=== PATIENT | male | born 1985 | race Caucasian/White ===

== ENCOUNTER 2021-01-14 23:17 | Emergency (ER) | payer OTHER, SELFPAY ==
--- NOTE | ~2021-01-14 | XR_ITS ---
EXAMINATION: XR chest 1V portable DATE: 01/15/2021 01:14 INDICATION: Cough TECHNIQUE: frontal view of the chest was obtained. COMPARISON: None FINDINGS: The lungs are clear with no focal airspace opacities, pulmonary edema, pleural effusion or pneumothor ax. The cardiomediastinal silhouette is normal. Visualized bones and soft tissues are unremarkable. IMPRESSION: 1. No acute cardiopulmonary disease. Reviewed, dictated and finalized at location A.
[2021-01-14 23:20] VITALS: BP 128/79; PULSE 95; RESP 18; TEMP 37.1; O2SAT 97
[2021-01-15 01:15] VITALS: BP 132/87; PULSE 90; RESP 20; O2SAT 99
[2021-01-15 02:21] LABS: EDCOVIDSCREEN Positive (Negative)
--- NOTE | 2021-01-15 03:38 | ED.GENADULT ---
HPI - General Adult General Chief complaint: Unspecified Stated complaint: JOSEPH, cough, fatigue, nausea Time Seen by Provider: 01/15/21 00:58 Source: RN notes reviewed History of Present Illness HPI narrative: Patient presents to emergency department from home for multiple complaints. Patient states he began to feel ill 2 days ago. States he has had intermittent headaches subjective fevers nonproductive cough and intermittent nausea as well as rhinorrhea and mild sore throat he states that he does not have the COVID-19 vaccine he denies having any measured fevers chest pain shortness of breath vomiting or any other symptoms states he has been taking aspirin at home with no relief Related Data Allergies Allergy/AdvReac Type Severity Reaction Status Date / Time penicillin G Allergy Mild Unknown Verified 01/14/21 23:24 Penicillins Allergy Unknown Unknown Verified 01/14/21 23:24 Review of Systems Review of Systems: Gen.: Subjective fevers Eyes: Denies eye pain or visual change ENT: See HPI Respiratory: Denies shortness of breath reports nonproductive cough CV: Denies chest pain or palpitations GI: Denies abdominal pain emesis or diarrhea reports nausea Musculoskeletal: Denies back pain or muscle pain Neuro: Denies numbness, tingling, weakness or focal weakness Skin: Denies rash Except as documented, all other systems reviewed and negative PMFSH Past Medical History Medical History Cellulitis Type 2 diabetes mellitus Family History Family History (System 01/18/20 @ 13:03 by Lauren Yeboah) Mother Type 2 diabetes mellitus Father Patient's father is in good health Other Diabetes mellitus Family history of arthritis Hypertension Social History Social History Smoking status: Never smoker Alcohol intake: never Exam Narrative: APPEARANCE: No acute distress, nontoxic, resting in bed EYES: EOMI HEENT: Normocephalic, atraumatic, bilateral turbinates boggy mild erythema no exudate posterior pharynx uvula midline no exudate RESPIRATORY: No respiratory distress Clear to auscultation bilaterally with no rhonchi wheezing or rales. CARDIOVASCULAR: Regular rate and rhythm without murmurs rubs or gallops. ABDOMINAL: Soft, nontender, nondistended, no rebound or guarding MUSCULOSKELETAl: Moves all extremities. No clubbing, cyanosis or edema. NEURO: Awake and alert. Following commands, speech normal, no focal deficits SKIN:: Warm, dry. No rashes lesions or abrasions PSYCHIATRIC: Normal affect/mood, Course Course Emergency Course: Discussed with patient results of workup and diagnosis. Discussed need for follow-up with primary care, proper use of medication, and reasons to return to the emergency department. Patient understands and agrees to current treatment plan discussed with patient self-isolation for 10 days from start of symptoms Vital Signs Vital signs: Vital Signs Temperature 98.8 F 01/14/21 23:20 Pulse Rate 95 01/14/21 23:20 Respiratory Rate 18 01/14/21 23:20 Blood Pressure 128/79 01/14/21 23:20 Pulse Oximetry 97 01/14/21 23:20 Temperature 98.8 F 01/14/21 23:20 Pulse Rate 90 01/15/21 01:15 Respiratory Rate 20 01/15/21 01:15 Blood Pressure 132/87 01/15/21 01:15 Pulse Oximetry 99 01/15/21 01:15 Medical Decision Making Vital Signs Vital Signs: Vital Signs Temperature 98.8 F 01/14/21 23:20 Pulse Rate 95 01/14/21 23:20 Respiratory Rate 18 01/14/21 23:20 Blood Pressure 128/79 01/14/21 23:20 Pulse Oximetry 97 01/14/21 23:20 Temperature 98.8 F 01/14/21 23:20 Pulse Rate 90 01/15/21 01:15 Respiratory Rate 20 01/15/21 01:15 Blood Pressure 132/87 01/15/21 01:15 Pulse Oximetry 99 01/15/21 01:15 Lab Data Labs: Lab Results 01/15/21 Range/Units 01:55 SARS-CoV-2 IgG/IgM Ag?Rapid Positive (Negative) Imaging Data
[2021-01-15 03:59] VITALS: BP 131/88; PULSE 89; RESP 20; O2SAT 97
== END 2021-01-15 04:02 | disposition home or self-care (01) ==
PROVIDERS: Emergency Provider Emergency Medicine
DX: U07.1 COVID-19 (principal); E11.9 Type 2 diabetes mellitus without complications; Z79.4 Long term (current) use of insulin
CPT/HCPCS: 36415; 71045; 87426; 99283; C9803

== ENCOUNTER 2021-10-22 19:51 | Inpatient (IN) | payer OTHER, SELFPAY ==
--- NOTE | ~2021-10-22 | XR_ITS ---
EXAMINATION: XR chest 2V Exam Date/Time: 10/22/2021 22:10 CDT HISTORY: dka, EMISIS, PALPITATIONS Comparison: 01/15/2021. RESULT: Lines, tubes, and devices: None. Lungs and pleura: Clear. Unchanged nodular opacity in the left lateral lower lung, likely granuloma or soft tissue artifact. Cardiomediastinal silhouette: Stable cardiomediastinal silhouette. Other: No acute osseous or upper abdominal finding. IMPRESSION: No acute cardiopulmonary process. Reviewed, dictated and finalized at location K.
[2021-10-22 19:53] VITALS: BP 138/78; PULSE 114; RESP 18; TEMP 36; O2SAT 100
[2021-10-22 20:05] LABS: Glucose Point of Care 339 mg/dl (65-105)
--- NOTE | 2021-10-22 20:05 | PC.NURSE ---
blood glucose was 339 at 2004
[2021-10-22 20:16] LABS: Basophils Percent Auto 0.3 % (0.2-1.2); Hematocrit 49.4 % (42.0-52.0); Hemoglobin 16.5 g/dL (14.0-18.0); Immature Granulocyte Percent A 1.9 % (0-0.5); Lymphocytes Absolute Auto 0.62 K/mm3 (0.9-3.2); Mean Corpuscular HGB Conc 33.4 g/dl (32-36); Mean Corpuscular Hemoglobin 29.4 pg (26-34); Mean Corpuscular Volume 87.9 fl (80-100); Monocytes Absolute Auto 0.7 K/mm3 (0.1-0.6); Monocytes Percent Auto 4.4 % (2.6-8.5); Neutrophils Absolute Auto 13.8 K/mm3 (1.3-6.7); Neutrophils Percent Auto 89.4 % (45.5-73.1); Platelet Count Result 291 k/mm3 (150-375); Red Blood Count 5.62 M/mm3 (4.6-6.20); Red Cell Distribution Width 13.1 % (11.5-14.5); White Blood Count 15.4 K/mm3 (4.5-10.0)
[2021-10-22 20:35] LABS: Alveolar/Arterial O2 Gradient 16.6 mmHg; Base Excess ABG -18.1 mEq/l (+/-2.0); Carboxyhemoglobin 1.2 % THb (0-2.0); Fractional Inspired Oxygen 21 %; Methemoglobin ABG 0.2 %THb (0-1.5); Oxygen Content ABG 22.2 %vol (16.0-22.0); Oxygen Saturation ABG 96.8 % (95.0-100.0); Oxyhemoglobin 96.3 % THb (90.0-100.0); PO2 ABG 107.1 mmHg (80.0-100.0); Reduced Hemoglobin 2.3 %THb (0-5.0); Total Hemoglobin 16.3 g/dL (12.0-18.0)
[2021-10-22 20:37] LABS: Ovalocytes 1+ (NORMAL); Platelet Estimate Adequate (Adequate)
[2021-10-22 20:39] LABS: Device ROOM AIR; Modified Allen's Test Pass; PCO2 ABG 21.7 mmHg (35.0-45.0); Site Drawn LEFT RADIAL; pH ABG 7.184 (7.350-7.450)
[2021-10-22] MEDS: SODIUM CHLORIDE 0.9% IV 1,000 ML 999 ML IV CONT ×3 (20:41→22:08)
[2021-10-22] MEDS: ONDANSETRON INJ 4 MG/2 ML VIAL IV PUSH ×2 (20:41→23:08)
[2021-10-22 20:42] LABS: Alanine Aminotransferase 39 U/L (6-50); Alkaline Phosphatase 66 U/L (38-126); Aspartate Amino Transferase 21 U/L (17-59); Bilirubin,Total 0.5 mg/dL (0.2-1.3); Blood Urea Nitrogen 35 mg/dL (9-20); Calcium 8.9 mg/dL (8.4-10.2); Carbon Dioxide < 5 mmol/L (22-30); Chloride 89 mmol/L (98-107); Estimated CRCL calculation 68 ml/min; Estimated Glomerular Filt Rate 53; Glucose 284 mg/dL (65-110); Lipase 114 U/L (23-300); Potassium 4.2 mmol/L (3.4-5.0); Sodium 125 mmol/L (137-145)
[2021-10-22 20:47] VITALS: BP 116/61; PULSE 109; RESP 20; O2SAT 100
[2021-10-22 20:52] LABS: Appearance Urine Clear (Clear); Bilirubin Urine 1+ (Negative); Blood Urine Trace-lysed (Negative); Color Urine Yellow (Yellow); Glucose Urine UA 2+ mg/dL (Negative); Ketones Urine 4+ mg/dL (Negative); Leukocyte Esterase Ur Negative LEU/UL (Negative); Nitrate Urine Negative (Negative); Protein Urine 1+ mg/dL (Negative); Specific Grav Ur 1.015 (1.001-1.035); Urobilinogen Urine 0.2 mg/dL (<2.0); pH Urine 5.5 (5.0-9.0)
[2021-10-22 20:57] LABS: Add Urine Microscopic? YES; Mucus Urine Rare /lpf; RBC Urine 0-2 /hpf (0-2); Squamous Epithelial Cell Urine Rare /hpf (Few); WBC Urine 0-3 /hpf
[2021-10-22 21:32] VITALS: BP 107/69; PULSE 114; RESP 17; O2SAT 100
[2021-10-22 21:35] LABS: Glucose Point of Care 230 mg/dl (65-105)
--- NOTE | 2021-10-22 21:57 | ED.GENADULT ---
HPI - General Adult General Chief complaint: Nausea/Vomiting/Diarrhea Stated complaint: vomiting diabetic Time Seen by Provider: 10/22/21 20:16 History of Present Illness HPI narrative: Patient is a 36-year-old male who presents ER with fatigue and vomiting. Reports he has been feeling terrible for the last couple of days. He was seen in urgent care yesterday because he has had a sore mouth on the left side lower jaw. He has fractured teeth and they felt he had a dental infection and started on oral antibiotics. He is supposed to follow-up with a dentist in 3 days. Reports he has been vomiting for the last 2 days. Because he is not eating he is not taking his insulin. Denies fevers or chills or sweats. No alleviating factors. Unknown last time he was in DKA. Related Data Allergies Allergy/AdvReac Type Severity Reaction Status Date / Time penicillin G Allergy Mild Unknown Verified 10/22/21 20:21 Penicillins Allergy Unknown Unknown Verified 10/22/21 20:21 Review of Systems Review of Systems: All systems reviewed & are unremarkable except as noted in HPI and below Constitutional: Constitutional: Denies chills, Reports fatigue, Denies fever(s) and Reports weakness ENT: Denies nasal congestion and Denies sore throat Comments: Dental pain Cardiovascular: Cardiovascular: Denies chest pain, Denies rapid heart rate and Denies radiating jaw, neck or arm pain Respiratory: Respiratory: Denies cough and Denies dyspnea Gastrointestinal: Gastrointestinal: Denies abdominal pain, Denies constipation, Reports nausea and Reports vomiting Neurologic: Denies headache(s), Denies focal weakness and Denies numbness PMFSH Past Medical History Medical History (Updated 10/23/21 @ 05:37 by Kwabena Buck MD) Cellulitis (05/2018) COVID-19 (01/30/21) Type 2 diabetes mellitus Surgical History Surgical History No history of previous surgery Family History Family History Mother Type 2 diabetes mellitus Father Hypertension Hyperthyroidism History of thyroidectomy Sibling Type 2 diabetes mellitus Brother Sibling , Age 9 Congenital heart disease Sibling Cerebral palsy Social History Social History (Updated 10/23/21 @ 05:10 by Masha Garland DO) Smoking status: Never smoker Alcohol intake: never Substance use: never Additional living arrangements comments: He shares an apartment with his brother. He has a girlfriend. Additional occupation/education comments: He works at [employer]. He has a 15-year-old daughter. Spiritual care concerns: No Exam Narrative: GENERAL: Ill and uncomfortable-appearing, well-nourished, and in mild distress. HEAD: Normocephalic, atraumatic. ENT: Dry mucous membranes. Poor dentition with multiple dental caries and fractures. No obvious dental abscess on evaluation. No facial swelling. NECK: Supple. CHEST: Clear to auscultation. No respiratory distress. HEART: Tachycardic and regular. Normal peripheral pulses. ABDOMEN: Soft, nontender, nondistended. EXTREMITIES: Normal range of motion. No edema. SKIN: Warm, dry, no rash. NEURO: Alert and oriented x3. PSYCH: Normal mood and affect. Course Course Emergency Course: Admit to hospitalist service. ICU consulted. Patient be started on insulin drip. Will start on clindamycin for dental infection as this may have been the nidus that caused patient to start having decompensation. Vital Signs Vital signs: Vital Signs Temperature 96.8 F L 10/22/21 19:53 Pulse Rate 114 H 10/22/21 19:53 Respiratory Rate 18 10/22/21 19:53 Blood Pressure 138/78 10/22/21 19:53 Pulse Oximetry 100 10/22/21 19:53 Temperature 96.8 F L 10/22/21 19:53 Pulse Rate 120 H 10/23/21 04:00 Respiratory Rate 16 10/23/21 04:00 Blood Pressure 141/80 H 10/23/21 04:00 Pulse Oximetry 100 10/23/21 04:00 Oxyg
[2021-10-22 22:16] LABS: Lactic Acid Reflex 2.3 mmol/L (0.7-2.0)
[2021-10-22 22:17] LABS: Magnesium 2.5 mg/dL (1.6-2.3); Phosphorus 4.8 mg/dL (2.5-4.5)
[2021-10-22 22:29] VITALS: BP 139/83; PULSE 105; RESP 22; O2SAT 100
[2021-10-22] MEDS: CLINDAMYCIN 600 MG/D5W 50 ML 600 MG/50 ML PIGGYBACK 100 MG IVPB (22:38)
[2021-10-22 22:53] LABS: Glucose Point of Care 204 mg/dl (65-105)
[2021-10-22] MEDS: INSULIN HUMAN REGULAR (*BKC) 100 UNITS in SODIUM CHLORIDE 0.9% IV 99 ML IV CONT (23:01)
--- NOTE | 2021-10-22 23:12 | PM.IMHP ---
H&P: HPI History of Present Illness Date/Time: 10/22/21 22:50 Chief Complaint: ?Feels like shit? Narrative: 36-year-old male with a past medical history of insulin-dependent diabetes mellitus type 2, hypertension, hyperlipidemia and dental caries who presented to the ER via private vehicle due to multiple bouts of emesis. He reports he had 1 day of tooth pain in his left lower jaw. He was followed by 4-5 days of left jaw pain. He did have some swelling in his left lower jaw initially but that had improved. His symptoms were accompanied by polydipsia and polyuria. He denies any dysuria. He has not had any cough or congestion. He had a decreased appetite and severe to generalized fatigue. He felt so bad that he had not been eating or drinking. In 3 days ago he began having vomiting. Since he was not eating he decided not to take his Levemir. He reports that he was still taking his oral medications but he does not know know the names of his home medications. He cannot tell us the dose of Levemir that he takes. His symptoms became so bad that he went to urgent care yesterday and received a prescription for ibuprofen and clindamycin. Despite taking the clindamycin his symptoms did not improve so his mother insisted that he come to the ER. He denies symptoms of peripheral neuropathy. He was diagnosed with diabetes at the age of 18 at which time he weighed close to 300 lb. He has had a gradual weight loss ever since his diabetes diagnosis. He does not think he was ever tested to determine if he had type 1 or type 2 diabetes. He has been on insulin since he was 1st diagnosed. He reports that he has never had DKA previously. Review of Systems Review of Systems: 12 systems were reviewed with pertinent positives and negatives per HPI. Except as documented in the HPI, all other systems were reviewed and are negative. [facility] Past Medical History Medical History (Updated 10/23/21 @ 05:37 by Kwabena Buck MD) Cellulitis (05/2018) COVID-19 (01/30/21) Type 2 diabetes mellitus Surgical History Surgical History No history of previous surgery Family History Family History Mother Type 2 diabetes mellitus Father Hypertension Hyperthyroidism History of thyroidectomy Sibling Type 2 diabetes mellitus Brother Sibling , Age 9 Congenital heart disease Sibling Cerebral palsy Social History Social History (Updated 10/23/21 @ 05:10 by Masha Garland DO) Smoking status: Never smoker Alcohol intake: never Substance use: never Additional living arrangements comments: He shares an apartment with his brother. He has a girlfriend. Additional occupation/education comments: He works at [employer]. He has a 15-year-old daughter. Spiritual care concerns: No Meds Home Medications and Allergies Home Medications Medication Instructions Recorded Confirmed Type insulin glargine U-300 conc 300 42 unit (0.14 mL) subcut DAILY #12 04/02/19 Rx unit/mL (3 mL) subcutaneous pen PF unit (Toujeo Max U-300 SoloStar) cyclobenzaprine 10 mg tablet 10 mg PO BID PRN muscle spasm #20 01/12/20 01/12/20 Rx tabs insulin glargine U-300 conc 300 42 unit (0.14 mL) subcut DAILY #6 01/13/20 Rx unit/mL (3 mL) subcutaneous pen mL (Toujeo Max U-300 SoloStar) empagliflozin 25 mg tablet 25 mg PO QAM #90 tabs 02/10/20 Rx (Jardiance) albuterol sulfate 90 mcg/actuation 2 puff inhalation QID PRN 01/15/21 Rx aerosol inhaler shortness of breath or wheezing #6.7 grams ibuprofen 600 mg tablet (IBU) 600 mg PO Q6H PRN pain #20 tabs 01/15/21 Rx ondansetron 4 mg disintegrating 4 mg PO Q6H PRN nausea and 01/15/21 Rx tablet vomiting #10 tabs Allergies Allergy/AdvReac Type Severity Reaction Status Date / Time penicillin G Allergy Mild Unknown Verified 10/22/21 20:21 Penicillins Allergy Unk
[2021-10-22] MEDS: DEXTROSE 5%/0.45% SOD CHL 1,000 ML 150 ML IV CONT (23:27)
--- NOTE | 2021-10-22 23:38 | PC.NURSE ---
this RN called to give report to ICU, RN not available. Will call back when able.
[2021-10-23] VITALS (15 sets, daily range): BP systolic 110–153; BP diastolic 51–92; PULSE 78–120; RESP 14–23; TEMP 36.6–37.3; O2SAT 98–100; BMI 29.3
[2021-10-23 00:04] LABS: Glucose Point of Care 180 mg/dl (65-105)
[2021-10-23 00:25] LABS: Glucose Point of Care 180 mg/dl (65-105)
[2021-10-23] MEDS: KCL 20 MEQ/D5/0.45% SOD CHL 1,000 ML 150 ML IV CONT ×2 (00:28→07:07)
[2021-10-23] MEDS: INSULIN HUMAN REGULAR (*BKC) 100 UNITS in SODIUM CHLORIDE 0.9% IV 99 ML IV CONT (00:30)
[2021-10-23] MEDS: ONDANSETRON INJ 4 MG/2 ML VIAL IV PUSH (00:53)
[2021-10-23 01:09] LABS: Reflex Lactic Acid Yes or No Add Lactic
[2021-10-23 01:17] LABS: Lactic Acid Reflex 1.2 mmol/L (0.7-2.0)
[2021-10-23 01:19] LABS: Glucose Point of Care 171 mg/dl (65-105)
[2021-10-23 01:20] LABS: Hemoglobin A1C 7.9 % (<5.7)
[2021-10-23 01:45] LABS: Anion Gap 22 mmol/L (8-16); Blood Urea Nitrogen 27 mg/dL (9-20); Carbon Dioxide 8 mmol/L (22-30); Chloride 101 mmol/L (98-107); Creatine Kinase 64 U/L (55-170); Estimated CRCL calculation 110 ml/min; Estimated Glomerular Filt Rate > 60; Glucose 171 mg/dL (65-110); Magnesium 2.3 mg/dL (1.6-2.3); Phosphorus 2.6 mg/dL (2.5-4.5); Sodium 131 mmol/L (137-145)
[2021-10-23 02:09] LABS: Glucose Point of Care 172 mg/dl (65-105)
[2021-10-23 03:14] LABS: Glucose Point of Care 144 mg/dl (65-105)
[2021-10-23 04:13] LABS: Glucose Point of Care 140 mg/dl (65-105)
[2021-10-23] MEDS: PROMETHAZINE HCL 25 MG/ML AMPUL IM (04:26)
[2021-10-23 04:41] LABS: Anion Gap 17 mmol/L (8-16); Blood Urea Nitrogen 25 mg/dL (9-20); Calcium 8.1 mg/dL (8.4-10.2); Carbon Dioxide 10 mmol/L (22-30); Chloride 103 mmol/L (98-107); Estimated CRCL calculation 123 ml/min; Estimated Glomerular Filt Rate > 60; Glucose 153 mg/dL (65-110); Potassium 3.9 mmol/L (3.4-5.0); Sodium 130 mmol/L (137-145)
[2021-10-23 05:12] LABS: Glucose Point of Care 137 mg/dl (65-105)
[2021-10-23] MEDS: CLINDAMYCIN 600 MG/D5W 50 ML 600 MG/50 ML PIGGYBACK 100 MG IVPB ×3 (06:11→21:20)
[2021-10-23] MEDS: SODIUM CHLORIDE 0.9% IV 1,000 ML 999 ML IV CONT (06:12)
[2021-10-23 06:18] LABS: Glucose Point of Care 144 mg/dl (65-105)
[2021-10-23 06:34] LABS: Hemoglobin 15.2 g/dL (14.0-18.0); Mean Corpuscular HGB Conc 34.5 g/dl (32-36); Mean Corpuscular Hemoglobin 29.7 pg (26-34); Mean Corpuscular Volume 85.9 fl (80-100); Mean Platelet Volume 9.4 fl (7.4-10.4); Platelet Count Result 227 k/mm3 (150-375); Red Blood Count 5.12 M/mm3 (4.6-6.20); Red Cell Distribution Width 12.9 % (11.5-14.5); White Blood Count 12.5 K/mm3 (4.5-10.0)
[2021-10-23 07:01] LABS: Glucose Point of Care 129 mg/dl (65-105)
[2021-10-23 07:42] LABS: Glucose Point of Care 138 mg/dl (65-105)
[2021-10-23] MEDS: ENOXAPARIN 40 MG/0.4 ML SYRINGE SUB-Q (08:04)
[2021-10-23 08:09] LABS: Glucose Point of Care 149 mg/dl (65-105)
--- NOTE | 2021-10-23 08:44 | WPDCNINT ---
Assessment and Plan Assessment and plan (1) DKA (diabetic ketoacidosis): Code(s): E11.10 - Type 2 diabetes mellitus with ketoacidosis without coma Status: Acute Assessment and Plan: Patient presented the ED on 11/08/2021 with polydipsia, polyuria, decreased oral intake, not taking his Levemir as he was not eating. -patient was found to be in a diabetic ketoacidosis in the ER with elevated blood sugars, anion gap and beta hydroxybutyrate. -total of 4 L of IV fluids were given to the patient, started on insulin infusion along with maintenance IV fluids -will transition patient to long-acting insulin sliding scale insulin once his anion gap is closed -will have perioperative educator and dietitian to evaluate the patient (2) Acute kidney injury: Code(s): N17.9 - Acute kidney failure, unspecified Status: Acute Assessment and Plan: Resolved with IV fluids, likely related to hypovolemia secondary to polyuria, decreased p.o. intake in diabetic ketoacidosis (3) Dental abscess: Code(s): K04.7 - Periapical abscess without sinus Status: Acute Assessment and Plan: Dental caries and abscess -patient has been started on IV clindamycin as he has allergy to penicillin (4) DVT prophylaxis: Code(s): Z29.9 - Encounter for prophylactic measures, unspecified Status: Acute Assessment and Plan: Enoxaparin Plan -Continue insulin infusion -continue antibiotics -continue maintenance IV fluids at this time Additional Plan Discussed with patient updated with his condition plan of care. Code status: Full code Critical care time spent: 43 minutes This dictation may have been done utilizing a voice recognition system. Attempts have been made to correct errors. However, there may be uncorrected grammatical, spelling, and recognition errors present. Due to a high probability of clinically significant, life threatening deterioration, the patient required my highest level of preparedness to intervene emergently and I personally spent this critical care time directly and personally managing the patient. This critical care time included obtaining a history; examining the patient; pulse oximetry; ordering and review of studies; arranging urgent treatment with development of a management plan; evaluation of patient's response to treatment; frequent reassessment; and discussions with other providers. It was exclusive of separately billable procedures and treating other patients and teaching time. Please see Assessment and Plan section and the rest of the note for further information on patient assessment and treatment Pneumatic Tester Mechanic Consult Note Consult date: 10/23/21 Reason for consult: DKA, dental caries/dental abscess HPI: Akshat Garcia is a 36 year old male with PMH of IDDM, HTN, hyperlipidemia and dental caries presented the ED on 11/08/2021 with complains of swelling of his left jaw, polydipsia, polyuria, decreased oral intake, did not take his Levemir. Patient was found to be in DKA in the ER with elevated blood sugars, beta hydroxybutyrate and anion gap. Patient was given 3 L IV fluids bolus in the ER and an additional 1 L IV fluid bolus in the ICU, was placed on insulin infusion and transferred to the ICU for further management. Patient did visit in urgent care for his dental caries and left jaw swelling and was started on oral clindamycin and ibuprofen. Pt seen and examined in the ICU, denies any pain, SOB, abdominal pain, Nausea or vomiting. Patient is afebrile, with complains of shivering. Adequate urine output, tachycardia has improved and hemodynamically stable. Patient denies any alcohol, tobacco or illicit drug use Review of Systems Review of Systems: All systems reviewed & are unremarkable except as noted in HPI and below [facility] Past Medical History Medical History (Updated 10/23/21 @ 09:08 by Donte Ross MD) Cellulitis (05/2018) COVID-19 (01/30/21) Type 2 diabetes me
[2021-10-23 09:02] LABS: Glucose Point of Care 153 mg/dl (65-105)
[2021-10-23 09:12] LABS: Anion Gap 12 mmol/L (8-16); Blood Urea Nitrogen 21 mg/dL (9-20); Carbon Dioxide 13 mmol/L (22-30); Chloride 105 mmol/L (98-107); Estimated CRCL calculation 139 ml/min; Estimated Glomerular Filt Rate > 60; Glucose 140 mg/dL (65-110); Potassium 4.1 mmol/L (3.4-5.0); Sodium 130 mmol/L (137-145)
[2021-10-23 10:05] LABS: Glucose Point of Care 130 mg/dl (65-105)
[2021-10-23] MEDS: INSULIN GLARGINE (*BKC) 100 UNITS/ML 50 UNITS SUB-Q (10:26)
[2021-10-23 11:41] LABS: Glucose Point of Care 139 mg/dl (65-105)
--- NOTE | 2021-10-23 12:06 | PCFNICU ---
ICU Rounding Note: Pt current nutrition is [facility]. Last recorded weight is 97 kg Bowel Motility: No BM reported. Labs Reviewed:Glu 140, Na 130, BUN 21 Meds Noted:Lantus, Lovenox, Zofran Skin: WNL Additional Notes: Patient seen today for DKA. HbA1c 7.9%. Diet order has advanced to [facility], discussed carb amount with patient and family today. See Nutritional Teaching interventions. Patient Instruction attached. Thank you for the consult. Following daily in ICU rounds.
[2021-10-23 15:32] LABS: Glucose Point of Care 117 mg/dl (65-105)
--- NOTE | 2021-10-23 16:33 | PM.IMPN ---
Progress Note: A&P Assessment and Plan (1) DKA (diabetic ketoacidosis): Code(s): E11.10 - Type 2 diabetes mellitus with ketoacidosis without coma Status: Acute Assessment and Plan: Patient presented the ED on 11/08/2021 with polydipsia, polyuria, decreased oral intake, not taking his Levemir as he was not eating. -patient was found to be in a diabetic ketoacidosis in the ER with elevated blood sugars, anion gap and beta hydroxybutyrate. -total of 4 L of IV fluids were given to the patient, started on insulin infusion along with maintenance IV fluids -will transition patient to long-acting insulin sliding scale insulin once his anion gap is closed -will have telehealth nurse educator and dietitian to evaluate the patient 10/23/2021 interval history: patient with type 1 diabetes states he did not feel very well and was not able to take his insulin and his blood sugar were elevated and presented emergency department and was found to have a DKA patient was aggressively hydrated and IV insulin was started, and patient is feeling better his anion gap is closed insulin drip is off and is on long-acting insulin with sliding scale, still feel somnolent and tired, monitor patient will transfer patient out of ICU and monitor, patient will benefit from telehealth nurse educator (2) Acute kidney injury: Code(s): N17.9 - Acute kidney failure, unspecified Status: Acute Assessment and Plan: Resolved with IV fluids, likely related to hypovolemia secondary to polyuria, decreased p.o. intake in diabetic ketoacidosis (3) Dental abscess: Code(s): K04.7 - Periapical abscess without sinus Status: Acute Assessment and Plan: Dental caries and abscess -patient has been started on IV clindamycin as he has allergy to penicillin (4) DVT prophylaxis: Code(s): Z29.9 - Encounter for prophylactic measures, unspecified Status: Acute Assessment and Plan: Enoxaparin (5) DKA, type 2: Code(s): E11.10 - Type 2 diabetes mellitus with ketoacidosis without coma Status: Acute (6) Dehydration: Code(s): E86.0 - Dehydration Status: Acute Plan -Continue insulin infusion -continue antibiotics -continue maintenance IV fluids at this time Subjective Date/time seen: 10/23/21 16:33 HPI:36-year-old male with a past medical history of insulin-dependent diabetes mellitus type 2, hypertension, hyperlipidemia and dental caries who presented to the ER via private vehicle due to multiple bouts of emesis.? He reports he had 1 day of tooth pain in his left lower jaw.? He was followed by 4-5 days of left jaw pain.? He did have some swelling in his left lower jaw initially but that had improved.? His symptoms were accompanied by polydipsia and polyuria.? He denies any dysuria.? He has not had any cough or congestion.? He had a decreased appetite and severe to generalized fatigue.? He felt so bad that he had not been eating or drinking.? In 3 days ago he began having vomiting.? Since he was not eating he decided not to take his Levemir.? He reports that he was still taking his oral medications but he does not know know the names of his home medications.? He cannot tell us the dose of Levemir that he takes.? His symptoms became so bad that he went to urgent care yesterday and received a prescription for ibuprofen and clindamycin.? Despite taking the clindamycin his symptoms did not improve so his mother insisted that he come to the ER. He denies symptoms of peripheral neuropathy. He was diagnosed with diabetes at the age of 18 at which time he weighed close to 300 lb.? He has had a gradual weight loss ever since his diabetes diagnosis.? He does not think he was ever tested to determine if he had type 1 or type 2 diabetes.? He has been on insulin since he was 1st diagnosed.? He reports that he has never had DKA previously. 10/23/2021 interval history: patient with type 1 diabetes states he did not feel very well and was not
[2021-10-23] MEDS: ACETAMINOPHEN 325 MG TABLET 650 MG PO (19:25)
[2021-10-23 21:18] LABS: Glucose Point of Care 104 mg/dl (65-105)
[2021-10-23] MEDS: ROSUVASTATIN 5 MG TABLET PO (21:20)
[2021-10-24] VITALS: PULSE 77; O2SAT 99
[2021-10-24 05:57] VITALS: BP 119/66; PULSE 79; RESP 16; TEMP 36.6; O2SAT 98
[2021-10-24] MEDS: CLINDAMYCIN 600 MG/D5W 50 ML 600 MG/50 ML PIGGYBACK 100 MG IVPB (06:04)
[2021-10-24 07:24] LABS: Glucose Point of Care 99 mg/dl (65-105)
[2021-10-24 07:26] VITALS: BP 116/74; PULSE 88; RESP 16; TEMP 37; O2SAT 97
[2021-10-24 08:00] VITALS: O2SAT 97
--- NOTE | 2021-10-24 08:11 | PC.NURSE ---
Notified Dr. Nayak of patient's morning blood glucose of 99. Pt to receive 50 units of Lantus (home dose). New order to hold Lantus and continue to monitor. Pt also requesting to go home today. Dr. Nayak to come and see patient and evaluate if patient is stable for discharge
[2021-10-24] MEDS: EMPAGLIFLOZIN 25 MG TABLET PO (08:29)
[2021-10-24] MEDS: lisinopriL 2.5 MG TABLET PO (08:29)
[2021-10-24] MEDS: ENOXAPARIN 40 MG/0.4 ML SYRINGE SUB-Q (08:29)
[2021-10-24] MEDS: glipiZIDE 5 MG TABLET PO (08:29)
[2021-10-26 16:11] LABS: Glutamic acid decarboxylase AA <5 IU/mL (<5)
[2021-11-03 00:42] LABS: Islet Cell Antibody Screen NEGATIVE (NEGATIVE)
--- NOTE | 2021-11-18 13:45 | PM.DS ---
DS: Admitting Diagnosis Discharge Date 10/24/21 Admitting Diagnosis multiple bouts of emesis. DS: Summary Hospital Course Reason for hospitalization: Chief Complaint: ?Feels like shit? Narrative: 36-year-old male with a past medical history of insulin-dependent diabetes mellitus type 2, hypertension, hyperlipidemia and dental caries who presented to the ER via private vehicle due to multiple bouts of emesis.? He reports he had 1 day of tooth pain in his left lower jaw.? He was followed by 4-5 days of left jaw pain.? He did have some swelling in his left lower jaw initially but that had improved.? His symptoms were accompanied by polydipsia and polyuria.? He denies any dysuria.? He has not had any cough or congestion.? He had a decreased appetite and severe to generalized fatigue.? He felt so bad that he had not been eating or drinking.? In 3 days ago he began having vomiting.? Since he was not eating he decided not to take his Levemir.? He reports that he was still taking his oral medications but he does not know know the names of his home medications.? He cannot tell us the dose of Levemir that he takes.? His symptoms became so bad that he went to urgent care yesterday and received a prescription for ibuprofen and clindamycin.? Despite taking the clindamycin his symptoms did not improve so his mother insisted that he come to the ER. He denies symptoms of peripheral neuropathy. He was diagnosed with diabetes at the age of 18 at which time he weighed close to 300 lb.? He has had a gradual weight loss ever since his diabetes diagnosis.? He does not think he was ever tested to determine if he had type 1 or type 2 diabetes.? He has been on insulin since he was 1st diagnosed.? He reports that he has never had DKA previously. Hospital Course: patient with type 1 diabetes states he did not feel very well and was not able to take his insulin and his blood sugar were elevated and presented emergency department and was found to have a DKA patient was aggressively hydrated and IV insulin was started, and patient is feeling better his anion gap is closed insulin drip is off and is on long-acting insulin with sliding scale, still feel somnolent and tired, monitor patient will transfer patient out of ICU and monitor, patient will benefit from clinical educator. patient remains clinically stable blood sugars are close to target discharge the patient today. Patient to follow to follow up with his dentist as scheduled for tomorrow, patient to follow up with his primary care provider as soon as possible, patient is instructed if any symptoms worsen to go to nearest ER. Time Spent with Patient Time attestation: Total time spent providing and/or coordinating discharge services: Discharge Plan Discharge Attending physician on discharge: Tonya Nayak Consulting providers: Inderjit Bravo ; Donte Ross Discharging Clinician: Tonya Nayak Patient Disposition: Home, Self-Care Activity: as tolerated Diet: diabetic Discharge Instructions: Patient to follow to follow up with his dentist as scheduled for tomorrow, patient to follow up with his primary care provider as soon as possible, patient is instructed if any symptoms worsen to go to nearest ER. Patient Instructions: Antibiotic Form, Managing Diabetes During Sick Days (DC), Diabetic Hyperglycemia (DC) Stand Alone Forms: General Discharge Information, Work/School Release IP Follow-up/Referrals: Wero,Henry Harris MD [Primary Care Provider] - Discharge Medications: Continued ibuprofen [IBU] 600 mg tablet 600 mg PO Q6H PRN (Reason: pain) Qty: 20 0RF albuterol sulfate 90 mcg/actuation HFA aerosol inhaler 2 puff INHALATION QID PRN (Reason: shortness of breath or wheezing) Qty: 6.7 0RF ondansetron 4 mg tablet,disintegrating 4 mg PO Q6H PRN (Reason: nausea and vomiting) Qty: 10 0RF lisinopril 2.5 mg Tablet 2.5 mg PO DAILY glipizide 5 mg Tablet 5 mg PO
== END 2021-10-24 12:44 | disposition home or self-care (01) | DRG 638 ==
LOC: ANHED 21:22 → ANHICU 23:00
PROVIDERS: Emergency Medicine; Admitting Provider Internal Medicine; Emergency Provider Emergency Medicine; PCP Family Medicine; Visit Provider Family Medicine
DX: E11.10 Type 2 diabetes mellitus with ketoacidosis without coma (principal); N17.9 Acute kidney failure, unspecified; E86.0 Dehydration; K04.7 Periapical abscess without sinus; Z86.16 Personal history of COVID-19; Z82.49 Family history of ischemic heart disease and other diseases of the circulatory system; Z83.3 Family history of diabetes mellitus; E78.5 Hyperlipidemia, unspecified; E86.1 Hypovolemia; R35.89 Other polyuria; Z79.899 Other long term (current) drug therapy; Z79.4 Long term (current) use of insulin; Z79.51 Long term (current) use of inhaled steroids
CPT/HCPCS: 36415; 36600; 71046; 80048; 80053; 81001; 82375; 82550; 82805; 82948; 83036; 83050; 83605; 83690; 83735; 84100; 85025; 85027; 86337; 86341; 96361; 96365; 96366; 96367; 96368; 96372; 96375; 99285; A9270; G0378; G0379; J1650; J1815; J2405; J2550; J3480; J7030

== ENCOUNTER 2022-06-11 12:39 | Outpatient (CLI) | payer OTHER, SELFPAY ==
[2022-06-11 19:36] LABS: Alanine Aminotransferase 33 U/L (6-50); Albumin Level 4.8 g/dL (3.5-5.1); Alkaline Phosphatase 64 U/L (38-126); Anion Gap 7 mmol/L (8-16); Aspartate Amino Transferase 35 U/L (17-59); Bilirubin,Total 0.6 mg/dL (0.2-1.3); Blood Urea Nitrogen 19 mg/dL (9-20); Calcium 9.8 mg/dL (8.4-10.2); Carbon Dioxide 31 mmol/L (22-30); Chloride 98 mmol/L (98-107); Cholesterol 160 mg/dL (0-200); Estimated Glomerular Filt Rate > 60; Glucose 140 mg/dL (65-110); HDL Direct 37 mg/dL; Potassium 4.5 mmol/L (3.4-5.0); Sodium 136 mmol/L (137-145); Triglycerides 68 mg/dL (<150)
[2022-06-11 19:42] LABS: Basophils Percent Auto 0.6 % (0.2-1.2); Eosinophils Absolute Auto 0.1 K/mm3 (0-0.3); Eosinophils Percent Auto 0.8 % (0-4.4); Hematocrit 50.8 % (42.0-52.0); Hemoglobin 16.9 g/dL (14.0-18.0); Immature Granulocyte Absolute 0.05 K/mm3 (0.00-0.031); Immature Granulocyte Percent A 0.7 % (0-0.5); Lymphocytes Percent Auto 15.5 % (18.3-44.2); Mean Corpuscular HGB Conc 33.3 g/dl (32-36); Mean Corpuscular Hemoglobin 29.6 pg (26-34); Mean Corpuscular Volume 89.1 fl (80-100); Mean Platelet Volume 10.6 fl (7.4-10.4); Monocytes Absolute Auto 0.4 K/mm3 (0.1-0.6); Monocytes Percent Auto 6.1 % (2.6-8.5); Neutrophils Absolute Auto 5.4 K/mm3 (1.3-6.7); Neutrophils Percent Auto 76.3 % (45.5-73.1); Platelet Count Result 198 k/mm3 (150-375); Red Cell Distribution Width 13.1 % (11.5-14.5); White Blood Count 7.1 K/mm3 (4.5-10.0)
[2022-06-11 19:47] LABS: LDL Cholesterol Direct 93 mg/dL
[2022-06-11 20:37] LABS: HIV 1/2 Ab P24 Ag Result Negative (Negative)
[2022-06-11 20:49] LABS: Hemoglobin A1C 7.7 % (<5.7)
[2022-06-11 20:55] LABS: Creatinine Urine 91.2 mg/dL
[2022-06-11 20:59] LABS: MALB Creatinine Ratio 55.2 mg/g (0-30); Microalbumin Urine Random 50.3 mg/L (0-16.7)
[2022-06-12 16:46] LABS: Rapid Plasma Reagin Non-Reactive (NonReactive)
== END 2022-06-11 12:40 | disposition home or self-care (01) ==
LOC: ANHGOSHLAB 12:41
PROVIDERS: PCP Emergency Medicine; Visit Provider Emergency Medicine
DX: Z11.3 Encounter for screening for infections with a predominantly sexual mode of transmission (principal); E13.9 Other specified diabetes mellitus without complications
CPT/HCPCS: 36415; 80053; 80061; 82043; 83036; 85025; 86592; 86703; 87491; 87591; G0432

== ENCOUNTER 2022-08-06 09:30 | Outpatient (RCR) | payer OTHER, SELFPAY ==
[2022-08-06 09:39] VITALS: BMI 31.4
[2022-08-06 09:56] VITALS: BMI 31.4
== END 2022-10-21 12:26 | disposition home or self-care (01) ==
LOC: ANHDMC 09:30
PROVIDERS: PCP Emergency Medicine; Visit Provider Emergency Medicine
DX: E13.9 Other specified diabetes mellitus without complications (principal); Z71.89 Other specified counseling; Z71.3 Dietary counseling and surveillance
CPT/HCPCS: 97802; G0108

== ENCOUNTER 2022-10-10 11:09 | Outpatient (CLI) | payer OTHER, SELFPAY ==
[2022-10-10 13:28] LABS: Alanine Aminotransferase 36 U/L (6-50); Albumin Level 4.8 g/dL (3.5-5.1); Alkaline Phosphatase 49 U/L (38-126); Anion Gap 9 mmol/L (8-16); Aspartate Amino Transferase 36 U/L (17-59); Bilirubin,Total 0.7 mg/dL (0.2-1.3); Blood Urea Nitrogen 22 mg/dL (9-20); Calcium 9.2 mg/dL (8.4-10.2); Carbon Dioxide 27 mmol/L (22-30); Chloride 101 mmol/L (98-107); Estimated Glomerular Filt Rate > 60; Glucose 123 mg/dL (65-110); Potassium 4.5 mmol/L (3.4-5.0); Sodium 137 mmol/L (137-145)
[2022-10-13 05:56] LABS: C-Peptide 1.37 ng/mL (0.80-3.85)
== END 2022-10-10 11:10 | disposition home or self-care (01) ==
LOC: ANHWCLAB 11:11
PROVIDERS: PCP Nurse Practitioner Family; Visit Provider Internal Medicine
DX: E11.10 Type 2 diabetes mellitus with ketoacidosis without coma (principal)
CPT/HCPCS: 36415; 80053; 84681

== ENCOUNTER 2023-03-04 10:38 | Outpatient (CLI) | payer OTHER, SELFPAY ==
[2023-03-04 12:46] LABS: Basophils Percent Auto 0.3 % (0.2-1.2); Eosinophils Absolute Auto 0.1 K/mm3 (0-0.3); Eosinophils Percent Auto 0.6 % (0-4.4); Hematocrit 45.5 % (42.0-52.0); Hemoglobin 15.2 g/dL (14.0-18.0); Immature Granulocyte Absolute 0.06 K/mm3 (0.00-0.031); Immature Granulocyte Percent A 0.7 % (0-0.5); Lymphocytes Absolute Auto 1.03 K/mm3 (0.9-3.2); Lymphocytes Percent Auto 11.6 % (18.3-44.2); Mean Corpuscular HGB Conc 33.4 g/dl (32-36); Mean Corpuscular Hemoglobin 29.9 pg (26-34); Mean Corpuscular Volume 89.6 fl (80-100); Mean Platelet Volume 10.5 fl (7.4-10.4); Monocytes Absolute Auto 0.5 K/mm3 (0.1-0.6); Monocytes Percent Auto 5.7 % (2.6-8.5); Neutrophils Absolute Auto 7.2 K/mm3 (1.3-6.7); Neutrophils Percent Auto 81.1 % (45.5-73.1); Platelet Count Result 237 k/mm3 (150-375); Red Blood Count 5.08 M/mm3 (4.6-6.20); Red Cell Distribution Width 12.4 % (11.5-14.5); White Blood Count 8.9 K/mm3 (4.5-10.0)
[2023-03-04 14:47] LABS: Anion Gap 9 mmol/L (8-16); Blood Urea Nitrogen 18 mg/dL (9-20); Carbon Dioxide 28 mmol/L (22-30); Chloride 102 mmol/L (98-107); Cholesterol 109 mg/dL (0-200); Estimated Glomerular Filt Rate > 60; Glucose 240 mg/dL (65-110); HDL Direct 30 mg/dL; Potassium 4.9 mmol/L (3.4-5.0); Sodium 139 mmol/L (137-145); Triglycerides 60 mg/dL (<150)
[2023-03-04 14:57] LABS: LDL Cholesterol Direct 65 mg/dL
[2023-03-04 16:00] LABS: Hemoglobin A1C 7.4 % (<5.7)
[2023-03-04 22:22] LABS: HIV 1/2 Ab P24 Ag Result Negative (Negative)
== END 2023-03-04 10:39 | disposition home or self-care (01) ==
LOC: ANHGOSHLAB 10:40
PROVIDERS: Emergency Medicine; PCP Nurse Practitioner Family; Visit Provider Nurse Practitioner Family
DX: Z11.3 Encounter for screening for infections with a predominantly sexual mode of transmission (principal); N17.9 Acute kidney failure, unspecified; E11.10 Type 2 diabetes mellitus with ketoacidosis without coma
CPT/HCPCS: 36415; 80048; 80061; 83036; 85025; 86703; G0432

== ENCOUNTER 2023-03-25 09:03 | Outpatient (CLI) | payer OTHER, SELFPAY ==
[2023-03-25 18:26] LABS: Appearance Urine Turbid (Clear); Bacteria Urine None Seen /hpf; Bilirubin Urine Negative (Negative); Blood Urine Negative (Negative); Color Urine Yellow (Yellow); Glucose Urine UA 3+ mg/dL (Negative); Ketones Urine Negative (Negative); Leukocyte Esterase Ur Negative LEU/UL (Negative); Nitrate Urine Negative (Negative); Non Pathogenic Casts 0-2; Protein Urine Negative (Negative); RBC Urine 0-2 /hpf (0-2); Specific Grav Ur 1.022 (1.001-1.035); Squamous Epithelial Cell Urine None seen /hpf (Few); WBC Urine 0-5 /hpf; pH Urine 6.5 (5.0-9.0)
[2023-03-25 18:31] LABS: Add Urine Microscopic? YES
== END 2023-03-25 09:04 | disposition home or self-care (01) ==
LOC: ANHGOSHLAB 09:05
PROVIDERS: PCP Nurse Practitioner Family; Visit Provider Nurse Practitioner Family
DX: N17.9 Acute kidney failure, unspecified (principal)
CPT/HCPCS: 81001